=== PATIENT | male | born 2000 | race Caucasian/White ===

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

== ENCOUNTER 2021-01-19 18:09 | Emergency (ER) | payer OTHER ==
[~2021-01-19] VITALS: Ht 180.3 cm; Wt 99.8 kg
[2021-01-19 18:11] VITALS: BP 150/81
[2021-01-19 18:24] VITALS: BP 150/81
--- NOTE | 2021-01-19 18:24 | NUR ---
WITH C/O RIGHT KNEE PAIN S/P PLAYING BASKETBALL ON SATURDAY, PAIN IS INTERMITTENT AND WORSENS WHEN MOVED THE WRONG WAY NO DEFORMITY, NO REDNESS, NO SWELLING NOTED NO PMH NKDA
== END 2021-01-19 19:00 | disposition home or self-care (01) ==
LOC: MED 18:09
DX: S83.91XA Sprain of unspecified site of right knee, initial encounter (principal); W21.05XA Struck by basketball, initial encounter; Y93.89 Activity, other specified; Y92.89 Other specified places as the place of occurrence of the external cause; Y99.8 Other external cause status
CPT/HCPCS: 99282

== ENCOUNTER 2021-06-28 15:02 | Emergency (ER) | payer OTHER ==
[~2021-06-28] VITALS: Ht 182.9 cm; Wt 92.5 kg
[2021-06-28 15:05] VITALS: BP 130/70
--- NOTE | 2021-06-28 15:11 | NUR ---
Patient to lobby
--- NOTE | 2021-06-28 15:20 | NUR ---
Patient returned from RAD by wheelchair
[2021-06-28] MEDS ORDERED: IBUP-2213 PO (16:13)
--- NOTE | 2021-06-28 16:30 | NUR ---
No nursing interventions performed.
--- NOTE | 2021-06-28 16:38 | NUR ---
Patient discharged with v/s stable. Written and verbal after care instructions given and explained. Patient alert, oriented and verbalized understanding of instructions. Ambulatory with by parent. All questions addressed prior to discharge. ID band removed. Patient advised to follow up with PMD. Rx of Ibuprofen given. Patient educated on indication of medication including possible reaction and side effects. Opportunity to ask questions provided and answered.
== END 2021-06-28 16:38 | disposition home or self-care (01) ==
LOC: MED 15:02
DX: S93.401A Sprain of unspecified ligament of right ankle, initial encounter (principal); Z79.899 Other long term (current) drug therapy; X50.1XXA Overexertion from prolonged static or awkward postures, initial encounter; Y93.89 Activity, other specified; Y92.89 Other specified places as the place of occurrence of the external cause; Y99.8 Other external cause status
CPT/HCPCS: 73610; 99283

== ENCOUNTER 2022-08-31 15:27 | Emergency (ER) | payer OTHER ==
[~2022-08-31] VITALS: Ht 180.3 cm; Wt 97.1 kg
[~2022-08-31 15:27] MED LIST: IBUP-2213 PO
[2022-08-31 15:52] VITALS: BP 135/67
[2022-08-31] MEDS ORDERED: TETRACAINE HCL/PF 0.5% OPTH 4 ML BTL OP ONE (17:50)
[2022-08-31] MEDS ORDERED: FLUORESCEIN OPTH STRIP 1 MG OP ONE (17:50)
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
--- NOTE | 2022-08-31 18:02 | NUR ---
GREGORY Hawk evaluating patient at bedside.
[2022-08-31] MEDS ORDERED: IBUP-2213 PO (18:23)
[2022-08-31] MEDS ORDERED: OFLOS OP (18:23)
[2022-08-31 18:54] VITALS: BP 125/77
--- NOTE | 2022-08-31 18:54 | NUR ---
Patient discharged with v/s stable. Written and verbal after care instructions given. Patient alert, oriented and verbalized understanding of instructions. Ambulatory with steady gait. All questions addressed prior to discharge. ID band removed. Patient advised to follow up with PMD. Rx of Ibuprofen and Ofloxacin given. Opportunity to ask questions provided and answered.
== END 2022-08-31 18:54 | disposition home or self-care (01) ==
LOC: MED 15:27
DX: S05.02XA Injury of conjunctiva and corneal abrasion without foreign body, left eye, initial encounter (principal); Z79.899 Other long term (current) drug therapy; W22.8XXA Striking against or struck by other objects, initial encounter; Y93.89 Activity, other specified; Y92.89 Other specified places as the place of occurrence of the external cause; Y99.8 Other external cause status
CPT/HCPCS: 99283